=== PATIENT | male | born 1935 | race Caucasian/White ===

== ENCOUNTER 2024-05-07 10:04 | Inpatient (IN) | payer MEDICARE, OTHER, SELFPAY ==
[2024-05-07] VITALS (23 sets, daily range): BP systolic 116–184; BP diastolic 54–96; PULSE 65–92; RESP 14–23; TEMP 36.5–36.6; O2SAT 91–100; BMI 25.3
--- NOTE | ~2024-05-07 | US_ITS ---
EXAMINATION: US carotid duplex BI DATE: 05/10/2024 09:20 INDICATION: Bilateral carotid bruit. TECHNIQUE: Grayscale, color Doppler, and pulsed Doppler images of the cervical carotid arteries were obtained. The degree of vessel stenosis is placed in one of the following categories: normal, <50%, 5 0-69%, >=70% but less than near-occlusion, near-occlusion, or total occlusion. Note that percent sten osis relative to normal distal artery lumen diameter is indirectly measured from velocity measurement s as described by Milo, et al. Radiology 2003; 229:340-346. COMPARISON: Ultrasound 02/10/2017 FINDINGS: RIGHT: The right common carotid artery (CCA) peak systolic velocity (PSV) is 63 cm/s. The right internal car otid artery (ICA) PSV is 83 cm/s. The right ICA end-diastolic velocity (EDV) is 28 cm/s. The right IC A/CCA PSV ratio is 1.3. Grayscale and color Doppler images yield an estimate of <50% diameter reducti on from plaque in the ICA. There is antegrade flow in the right vertebral artery. LEFT: The left CCA PSV is 76 cm/s. The left ICA PSV is 95 cm/s. The left ICA EDV is 25 cm/s. The left ICA/C CA PSV ratio is 1.3. Grayscale and color Doppler images yield an estimate of <50% diameter reduction from plaque in the ICA. There is antegrade flow in the left vertebral artery. IMPRESSION: 1. <50% stenosis in the right internal carotid artery. 2. <50% stenosis in the left internal carotid artery. Reviewed, dictated and finalized at location A.
--- NOTE | ~2024-05-07 | US_ITS ---
TESTICULAR ULTRASOUND (Doppler ultrasound interrogation techniques used as needed for this exam.) Ordering provider: Danielle Johnston PA-C History: . swelling . Comparison: None. FINDINGS: TESTICLES: Normal in size. The right measures 4.1x 1.9x 2.3 cm and the left measures 4x 1.7x 3.4 cm. Normal echogenicity bilaterally without mass lesion. Normal Doppler flow bilaterally. Right testicul ar cyst is seen measuring 0.5 x 0.2 x 0.3 cm. EPIDIDYMIDES: Normal in size. The right measures 0.6 cm and the left 0.9 cm. Normal echogenicity marga aterally. Both demonstrate normal Doppler flow. HYDROCELE: Large on the right and moderate on the left VARICOCELE: None. OTHER ABNORMALITY: None seen. IMPRESSION: Testicular cyst on the right. Bilateral hydroceles more on the right Otherwise, normal testicular ult rasound. Reviewed, dictated and finalized at location A. IMPRESSION: Testicular cyst on the right. Bilateral hydroceles more on the right Otherwise, normal testicular ultrasound.
--- NOTE | ~2024-05-07 | CT_ITS ---
CT of the Abdomen and Pelvis: Indication: Leukocytosis, diarrhea, weakness Technique: 2.5 mm axial scans were obtained through the abdomen and pelvis following intravenous adm inistration of 100 cc of Omnipaque 350. Dose reduction technique was used on this scan by utilizing a utomated exposure control and iterative reconstruction technique. The dose-length product (DLP) was 5 52.82 mGy-cm. Findings: Scans through the lung bases are unremarkable. The liver, spleen, pancreas, gallbladder, and adrenal glands are within normal limits. Bilateral shreya l cysts are present, likely parapelvic cysts. There are atherosclerotic calcifications of the aorta. No lymphadenopathy. No bowel obstruction or bowel wall thickening. There sigmoid diverticulosis noted. Images through the pelvis were performed. Urinary bladder unremarkable. Prostate gland is enlarged. N o ascites. Large right hydrocele present. Impression: Very large right hydrocele. Bilateral renal cysts. Reviewed, dictated and finalized at [facility]. Impression: Very large right hydrocele. Bilateral renal cysts.
--- NOTE | ~2024-05-07 | CT_ITS ---
CT brain wo con Ordering provider: Danielle Johnston PA-C History: 88 years Male with . confusion . Comparison: February 09, 2007 Technique: CT of the head without contrast. Radiation reduction technique utilized.The dose-length product was 605.33 mGy-cm. FINDINGS: BRAIN PARENCHYMA AND CSF SPACES: Mild leukoaraiosis and diffuse cortical atrophy. Mild atheromatous d isease. Rounded focal Hyperdense lesion is seen in the anterior portion of the third ventricle and me asuring 6 mm which is most likely colloid cyst. Hemorrhage cannot be excluded although less likely. F ollow-up advised.. No midline shift, mass effect or hemorrhage. The brain parenchyma and CSF spaces are otherwise normal. VISUALIZED PARANASAL SINUSES: Normal. MASTOIDS: Normal. BONES: Normal. SOFT TISSUES: Visualized nasopharynx is normal. Superficial soft tissues are normal. Hyperdense right globe unchanged from previous examination. IMPRESSION: No acute intracranial findings. Hyperdensity in the anterior third ventricle most likely colloid cyst. Follow-up advised. Reviewed, dictated and finalized at location A. IMPRESSION: No acute intracranial findings. Hyperdensity in the anterior third ventricle most likely colloid cyst. Follow-u p advised.
--- NOTE | ~2024-05-07 | XR_ITS ---
Clinical Indication: Weakness PA and lateral views of the chest: Comparison: 02/09/2017 Findings: The lungs are clear, without evidence of focal consolidation or pleural effusion. Cardiome diastinal silhouette is within normal limits. Bones and soft tissues are unremarkable. Impression: Normal chest. Reviewed, dictated and finalized at [facility]. Impression: Normal chest.
--- NOTE | ~2024-05-07 | CT_ITS ---
EXAMINATION: CT brain wo con DATE: 05/08/2024 08:33 INDICATION: Abnormal head CT. Colloid cyst. TECHNIQUE: Computed tomography (CT) of the head was performed without intravenous contrast. The mA wa s adjusted according to patient size. Iterative reconstruction technique was employed. The dose-lengt h product was 681.00 mGy-cm. COMPARISON: Head CT 05/07/2024, 02/09/17 FINDINGS: There are scattered areas of low attenuation in the cerebral white matter. There is no acut e ischemic infarct or intracranial hemorrhage. The ventricles are normal in size. There is a 7 mm hyp erdense mass in anterior third ventricle. There is a punctate hyperdensity medial to left frontal lob e. There is a small volume of hyperdense material in anterior aspect of left lateral ventricle. There are changes of right-sided scleral banding procedure. There is hyperdense material in the right ocul ar globe, likely injected material. There is mild mucosal thickening in the ethmoid sinuses. The mast oid air cells are normal. IMPRESSION: 1. Moderate nonspecific cerebral white matter disease, which likely represents chronic small vessel i schemic disease. 2. Hyperdensities in the third ventricle and left lateral ventricle and medial to the left frontal lo be, consistent with displaced injectate from the right ocular globe. Reviewed, dictated and finalized at location A. IMPRESSION: 1. Moderate nonspecific cerebral white matter disease, which likely represents chronic small vessel ischemic disease. 2. Hyperdensities in the third ventricle and left lateral ventricle and medial to the left frontal lobe, consistent with displaced injectate from the right oc ular globe.
--- NOTE | 2024-05-07 10:16 | ECG_ITS ---
Test Date: 2024-05-07 10:13:23 Measurements Intervals [place] Rate: 94 P: 0 TX: 0 QRS: 31 QRSD: 86 T: 28 QT: 373 QTc: 469 Interpretive Statements ATRIAL FIBRILLATION WITH ABERRANT CONDUCTION OR VENTRICULAR PREMATURE COMPLEXES NONSPECIFIC ST ABNORMALITY ABNORMAL RHYTHM ECG No previous ECG available for comparison Electronically Signed On 05-07-2024 16:06:29 CDT by Orlando Garza M.D.
--- NOTE | 2024-05-07 10:23 | ED.WEAKNESS ---
HPI - Weakness General Chief complaint: Nausea/Vomiting/Diarrhea <Danielle Johnston PA-C - Last Filed: 05/07/24 15:47> Stated complaint: sick x 1 wk <Danielle Johnston PA-C - Last Filed: 05/07/24 15:47> Time Seen by Provider: 05/07/24 10:15 <Danielle Johnston PA-C - Last Filed: 05/07/24 15:47> Source: patient <Danielle Johnston PA-C - Last Filed: 05/07/24 15:47> Mode of arrival: ambulatory <Danielle Johnston PA-C - Last Filed: 05/07/24 15:47> Limitations: altered mental status <Danielle Johnston PA-C - Last Filed: 05/07/24 15:47> History of Present Illness HPI Narrative: This is a 88 year old male that presents to the ER via [facility] for generalized weakness[facility] as no one had seen or heard from him in about a week. Patient is confused and not able to provide any further history. He does not report any current pain. <Danielle Johnston PA-C - Last Filed: 05/07/24 15:47> Related Data Allergies/Adverse reactions: Allergies Allergy/AdvReac Type Severity Reaction Status Date / Time No Known Allergies Allergy Unverified 02/09/17 08:22 <Danielle Johnston PA-C - Last Filed: 05/07/24 15:47> Review of Systems Review of Systems: ROS unobtainable: Yes unobtainable due to mental status <Danielle Johnston PA-C - Last Filed: 05/07/24 15:47> [facility] Past Medical History Medical History: Medical History Benign prostatic hyperplasia Detached retina <Danielle Johnston PA-C - Last Filed: 05/07/24 15:47> Surgical History Surgical History: Surgical History History of colonoscopy with polypectomy <Danielle Johnston PA-C - Last Filed: 05/07/24 15:47> Social History Social History: Social History (Updated 05/07/24 @ 16:07 by Katie Yeager PA-C) Social History: Surrogate medical decision maker: Code status: Smoking status: Former smoker <Danielle Johnston PA-C - Last Filed: 05/07/24 15:47> Exam Narrative: GENERAL: Elderly, well-nourished, and in no acute distress. HEAD: Normocephalic, atraumatic. EYES: EOMI. Right pupil is irregular and cornea is opacified ENT: Nares clear, no rhinorrhea or epistaxis. Mucous membranes moist. Oropharynx without tonsillar hypertrophy exudate or other lesions. Bilateral TMs pearly clements non-bulging NECK: Supple. No adenopathy or masses. CHEST: Clear to auscultation. No respiratory distress. No wheezes rales or rhonchi HEART: Regular rate and rhythm. No murmur heard. Normal peripheral pulses. ABDOMEN: Soft, nontender, nondistended, normal active bowel sounds. EXTREMITIES: Normal range of motion. No edema. Strength equal in bilateral upper and lower extremities (4/5) SKIN: Warm, dry, no rash. NEURO: No focal deficits. Alert and oriented x1. CN II-XII grossly intact PSYCH: Normal mood and affect <Danielle Johnston PA-C - Last Filed: 05/07/24 15:47> Course NIGHT PATROL INSPECTOR/PA Physician Supervision I agree with midlevel documentation; I performed the medical decision making component of this evaluation. <Fatou Vick MD - Last Filed: 05/07/24 16:08> Consultations Consultation #1: Spoke with hospitalist about patient and workup who accepts admission <Danielle Johnston PA-C - Last Filed: 05/07/24 15:47> Date: 05/07/24 <Danielle Johnston PA-C - Last Filed: 05/07/24 15:47> Vital Signs Vital signs: Vital Signs Temperature 97.7 F 05/07/24 10:00 Pulse Rate 81 05/07/24 10:00 Respiratory Rate 18 05/07/24 10:00 Blood Pressure 179/93 H 05/07/24 10:00 Pulse Oximetry 97 05/07/24 10:00 Oxygen Delivery Room Air 05/07/24 10:00 Temperature 97.7 F 05/07/24 10:00 Pulse Rate 87 05/07/24 14:17 Respiratory Rate 16 05/07/24 14:17 Blood Pressure 138/66 05/07/24 14:17 Pulse Oximetry 98 05/07/24 14:17 Oxygen Delivery Room Air 05/07/24 10:00 <Harley
[2024-05-07 11:24] LABS: Basophils Absolute Auto 0.1 K/mm3 (0.0-0.1); Basophils Percent Auto 0.5 % (0.2-1.2); Eosinophils Absolute Auto 0.1 K/mm3 (0-0.3); Eosinophils Percent Auto 1.1 % (0-4.4); Hematocrit 44.6 % (42.0-52.0); Hemoglobin 14.5 g/dL (14.0-18.0); Immature Granulocyte Absolute 0.04 K/mm3 (0.00-0.031); Immature Granulocyte Percent A 0.4 % (0-0.5); Lymphocytes Absolute Auto 2.21 K/mm3 (0.9-3.2); Lymphocytes Percent Auto 20.3 % (18.3-44.2); Mean Corpuscular HGB Conc 32.5 g/dl (32-36); Mean Corpuscular Hemoglobin 31.2 pg (26-34); Mean Corpuscular Volume 95.9 fl (80-100); Mean Platelet Volume 10.9 fl (7.4-10.4); Monocytes Absolute Auto 0.7 K/mm3 (0.1-0.6); Monocytes Percent Auto 6.3 % (2.6-8.5); Neutrophils Absolute Auto 7.8 K/mm3 (1.3-6.7); Neutrophils Percent Auto 71.4 % (45.5-73.1); Platelet Count Result 310 k/mm3 (150-375); Red Blood Count 4.65 M/mm3 (4.6-6.20); Red Cell Distribution Width 12.7 % (11.5-14.5); White Blood Count 10.9 K/mm3 (4.5-10.0)
[2024-05-07 11:33] LABS: Partial Thromboplastin Time 28.3 Seconds (22.3-36.8); Prothrombin Time 13.9 Seconds (11.1-14.7)
[2024-05-07 11:34] LABS: Alanine Aminotransferase 15 U/L (6-50); Albumin Level 4.1 g/dL (3.5-5.1); Alkaline Phosphatase 59 U/L (38-126); Anion Gap 10 mmol/L (4-12); Aspartate Amino Transferase 21 U/L (17-59); Bilirubin,Total 2.7 mg/dL (0.2-1.3); Blood Urea Nitrogen 20 mg/dL (9-20); Calcium 9.2 mg/dL (8.4-10.2); Carbon Dioxide 28 mmol/L (22-30); Chloride 102 mmol/L (98-107); Creatine Kinase 69 U/L (55-170); Estimated CRCL calculation 47 ml/min; Estimated Glomerular Filt Rate > 60; Glucose 106 mg/dL (65-110); Lipase 39 U/L (23-300); Potassium 3.5 mmol/L (3.4-5.0); Sodium 140 mmol/L (137-145)
[2024-05-07 11:58] LABS: Ethanol < 10 mg/dL (<10)
[2024-05-07 12:06] LABS: Add Urine Microscopic? YES; Appearance Urine Clear (Clear); Bacteria Urine None Seen /hpf; Bilirubin Urine Negative (Negative); Blood Urine Non-Hemolyzed Trace (Negative); Color Urine Dark Yellow (Yellow); Glucose Urine UA Negative (Negative); Ketones Urine 1+ mg/dL (Negative); Lactic Acid Reflex 1.9 mmol/L (0.7-2.0); Leukocyte Esterase Ur Negative LEU/UL (Negative); Need Manual Microscopic Reviewed; Nitrate Urine Negative (Negative); Protein Urine 1+ mg/dL (Negative); Specific Grav Ur 1.026 (1.001-1.035); Squamous Epithelial Cell Urine None Seen /hpf (Few); WBC Urine 0-5 /hpf (0-3); pH Urine 5.5 (5.0-9.0)
[2024-05-07 12:06] LABS: Influenza A QL RT-PCR Negative (Negative); Influenza B QL RT-PCR Negative (Negative); RSV RNA, RT-PCR Negative (Negative); SARS-CoV-2 RNA PCR Negative (Negative)
--- NOTE | 2024-05-07 14:27 | PC.NURSE ---
Bed alarm placed on patient's bed. patient was found standing in room urinating in trash can. patient was stable on his feet. patient easily directed back into bed. warm blanket given.
--- NOTE | 2024-05-07 14:31 | ECG_ITS ---
Test Date: 2024-05-07 14:35:10 Measurements Intervals [place] Rate: 77 P: 48 SD: 186 QRS: 27 QRSD: 93 T: 10 QT: 391 QTc: 443 Interpretive Statements SINUS RHYTHM WITH OCCASIONAL VENTRICULAR PREMATURE COMPLEXES VOLTAGE EVIDENCE OF LEFT VENTRICULAR HYPERTROPHY ABNORMAL ECG Compared to ECG 05/07/2024 10:13:23 SINUS RHYTHM REPLACES ATRIAL FIBRILLATION Electronically Signed On 05-07-2024 16:13:55 CDT by Orlando Garza M.D.
--- NOTE | 2024-05-07 16:05 | PM.IMHP ---
H&P: HPI History of Present Illness Date/Time: 05/07/24 16:05 Chief Complaint: Altered mental status. Narrative: This is an 88-year-old male who presented to the emergency department via EMS from home for evaluation of altered mental status. He is alert and oriented to self only and is a very poor historian. His landlord called 911 for a welfare check as he had not seen or heard from him in about a week's time. The patient was found confused and EMS was summoned. He is known to myself from an admission in January 2017 for syncope and diverticulitis and he was not the greatest historian at that time and refused to name a surrogate decision maker with no contacts charted. Today he arrives with no paperwork, phone, or anything accompanying him which could help us determine whether not he has family or friends nearby to contact. At some point in time he was apparently followed by the [place]. In any event, the patient told EMS that he has had diarrhea for several days and is just not feeling well. He did not have any complaints at the time of my evaluation and denied headache, neck ache, fever, chills, sweats, cold and flu symptoms, focal weakness, paresthesias, visual changes, facial droop, difficulty speaking and swallowing, chest pain, pleuritic pain, shortness of breath, cough, abdominal pain, nausea, vomiting, and dysuria. In the ED: He was in sinus rhythm on arrival with a blood pressure of 179/93. He has been afebrile. CMP and CBC were normal with the only outliers being a WBC count of 10.9 and a total bilirubin of 2.7. He was negative for influenza, RSV, and COVID. Ethyl alcohol level was less than 10. Urine was positive for 1+ ketones, 1+ protein, and 3 to [address] showed no acute intracranial findings and hyperdensity in the anterior 3rd ventricle most likely colloid cyst. Chest x-ray was normal. CT of the abdomen and pelvis showed very large right hydrocele and bilateral renal cysts. Scrotal ultrasound showed testicular cyst on the right bilateral hydroceles, more on the right. He is being admitted in this setting for further evaluation. Review of Systems Review of Systems: Review of systems completed but he stated no to every question asked of him. [facility] Past Medical History Medical History Benign prostatic hyperplasia Detached retina Diverticulitis Surgical History Surgical History History of colonoscopy with polypectomy Social History Social History (Updated 05/07/24 @ 20:43 by Katie Yeager PA-C) Social History: Patient refuses to designate a surrogate decision maker. Smoking status: Former smoker Alcohol intake: unknown Substance use: unknown Spiritual care concerns: No Meds Home Medications and Allergies Home Medications Medication Instructions Recorded Confirmed Type No Home Medications 05/07/24 05/07/24 History Allergies Allergy/AdvReac Type Severity Reaction Status Date / Time No Known Allergies Allergy Unverified 02/09/17 08:22 Vital Signs Vital Signs - 24 hr 05/07/24 10:00 05/07/24 10:10 05/07/24 10:12 Temperature 97.7 F Pulse Rate 81 79 81 Respiratory Rate 18 15 20 Blood Pressure 179/93 H 179/93 H Pulse Oximetry 97 96 Oxygen Delivery Room Air 05/07/24 10:38 05/07/24 11:00 05/07/24 11:40 Temperature Pulse Rate 71 92 69 Respiratory Rate 18 14 23 H Blood Pressure 138/95 H Pulse Oximetry 97 98 Oxygen Delivery 05/07/24 12:01 05/07/24 12:45 05/07/24 13:00 Temperature Pulse Rate 65 78 67 Respiratory Rate 20 17 18 Blood Pressure 143/86 H 144/76 H Pulse Oximetry 97 100 100 Oxygen Delivery 05/07/24 13:01 05/07/24 13:02 05/07/24 13:22 Temperature Pulse Rate 72 68 77 Respiratory Rate 19 18 17 Blood Pressure 134/78 184/74 H Pulse Oximetry 91 95 98 Oxygen Delivery 05/07/24 13:30 05/07/24 13:45 05/07/24 14:
--- NOTE | 2024-05-07 18:03 | PC.NURSE ---
This patient, Kenn Giraldo, was admitted to Medical Room 343-01. Patient/family oriented to hospital policies and general routines including ID bracelet, bed and alarms, visiting hours, pain management, procedures, bathroom and other care routines, personal items, smoking policy, room service/diet, and visiting hours. Information on how to activate the Rapid Response Team has been discussed. Patient/Family are encouraged to report perceived risks to care and to ask questions if they do not understand what they are told or what they should do.
--- NOTE | 2024-05-07 18:07 | PC.NURSE ---
RN unable to obtain any medical information or medications as patient is poor historian. Patient is only oriented to name. Patient unable to give correct birthday and states he is in [place] currently. Patient has no one listed on his contact list.
[2024-05-07] MEDS: LACTATED RINGERS 1,000 ML 100 ML IV CONT (21:34)
[2024-05-07 21:36] LABS: Ammonia < 9 umol/L (9-30); Bilirubin Indirect 2.4 mg/dL (0-1.1)
[2024-05-07 21:41] LABS: CRP < 0.5 mg/dL (<1.0)
[2024-05-07 22:19] LABS: Procalcitonin 0.1 ng/mL
[2024-05-08] VITALS (8 sets, daily range): BP systolic 103–142; BP diastolic 55–66; PULSE 55–86; RESP 16–18; TEMP 36.4–36.6; O2SAT 94–96
[2024-05-08 01:22] LABS: Amphetamine Screen Urine Negative (Negative); Barbiturate Screen Urine Negative (Negative); Benzodiazepines Screen Urine Negative (Negative); Cannabinoid Screen Urine Negative (Negative); Cocaine Screen Urine Negative (Negative); Methadone Screen Urine Negative (Negative); Opiate Screen Urine Negative (Negative); Phencyclidine Screen Urine Negative (Negative)
[2024-05-08 05:16] LABS: Hematocrit 40.4 % (42.0-52.0); Hemoglobin 13.9 g/dL (14.0-18.0); Mean Corpuscular HGB Conc 34.4 g/dl (32-36); Mean Corpuscular Hemoglobin 32.5 pg (26-34); Mean Corpuscular Volume 94.4 fl (80-100); Mean Platelet Volume 10.8 fl (7.4-10.4); Platelet Count Result 291 k/mm3 (150-375); Red Blood Count 4.28 M/mm3 (4.6-6.20); Red Cell Distribution Width 12.5 % (11.5-14.5); White Blood Count 11.2 K/mm3 (4.5-10.0)
[2024-05-08 05:27] LABS: Alanine Aminotransferase 13 U/L (6-50); Albumin Level 3.6 g/dL (3.5-5.1); Alkaline Phosphatase 55 U/L (38-126); Anion Gap 8 mmol/L (4-12); Aspartate Amino Transferase 17 U/L (17-59); Blood Urea Nitrogen 15 mg/dL (9-20); Calcium 8.7 mg/dL (8.4-10.2); Carbon Dioxide 26 mmol/L (22-30); Chloride 103 mmol/L (98-107); Estimated CRCL calculation 52 ml/min; Estimated Glomerular Filt Rate > 60; Glucose 86 mg/dL (65-110); Potassium 3.1 mmol/L (3.4-5.0); Sodium 137 mmol/L (137-145)
[2024-05-08 06:21] LABS: Thyroid Stimulating Hormone Reflex 0.696 uIU/mL (0.465-4.68)
--- NOTE | 2024-05-08 14:34 | PM.IMPN ---
Progress Note: A&P Assessment and Plan (1) Altered mental status: Qualifiers: Altered mental status type: unspecified Qualified Code(s): R41.82 - Altered mental status, unspecified Code(s): R41.82 - Altered mental status, unspecified Status: Acute Assessment and Plan: -The patient presented to the emergency department via EMS from his place of residence after he was found altered on a welfare check as detailed in HPI. - Unfortunately the patient is not able to provide any meaningful history and no contacts are available. - Upon reviewing the notes from his visit in 2017, it seems that he may very well have underlying cognitive deficits or psychiatric disorders. He has previously been seen at the [facility] and records have been requested - Brain CT did not show any acute findings but showed what appears to be a colloid cyst of the 3rd ventricle which is likely of no significance at this time. However radiologist does note that the area has some hyperdensity thus will repeat brain CT to rule out bleed. Neurologic exam is limited but appears nonfocal and stroke seems unlikely. No evidence to suggest underlying infection on preliminary workup. No reports of or evidence in his EMR to suggest a history of alcohol abuse and he does not appear to be going through withdrawals. - Urine drug screen, B12, ammonia, and TSH ordered. (2) Hyperbilirubinemia: Code(s): E80.6 - Other disorders of bilirubin metabolism Status: Acute Assessment and Plan: - Total bilirubin is a bit elevated but the remainder of his LFTs are within normal limits. 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 He just came back from CT. He is alert but not oriented, sitter at the bedside. He reports that he had not been feeling himself for a while but unable to provide any details. Review of Systems Review of Systems: pt is poor historian Exam Narrative: General: Mildly ill-appearing male in the semi-Cabrera position in bed. Weight: 71.2 kg. BMI: 25.3. HEENT: Normocephalic, atraumatic. Right pupil is a bit irregular when compared to the left but appears chronic. Sclera anicteric. Conjunctiva injected bilaterally. Tacky mucous membranes. Neck: Supple. No obvious lymphadenopathy or carotid bruits. No nuchal rigidity. Respiratory: Respirations are nonlabored and lungs are clear to auscultation. Cardiovascular: Regular rate and rhythm with S1-S2. Gastrointestinal: Abdomen is soft, nontender, and nondistended with positive bowel sounds. Skin: Warm and dry. Extremities: No cyanosis, clubbing, or edema. Radial and pedal pulses intact. Neurological: Alert and oriented to name only. Cranial nerves 2-12 are grossly intact. Speech is clear, some answers are nonsensical. No facial asymmetry. No pronator drift. Hand precipitation equipment tender and foot pushes are weak due to poor effort but are without gross focal findings. Psychiatric: Confused and cooperative. Const: General: comfortable Objective Data Vital Signs Vital Signs: Vital Signs - 24 hr 05/07/24 15:30 05/07/24 15:45 05/07/24 16:45 Temperature Pulse Rate 85 65 88 Respiratory Rate 17 17 15 Blood Pressure Pulse Oximetry Oxygen Delivery 05/07/24 17:15 05/07/24 17:17 05/07/24 21:45 Temperature 97.9 F Pulse Rate 87 74 67 Respiratory Rate 20 20 20 Blood Pressure 131/96 H 116/54 L Pulse Oximetry 98 Oxygen Delivery 05/07/24 20:00 05/08
[2024-05-08] MEDS: POTASSIUM CHLORIDE 20 MEQ PACKET (FOR LIQUID) 40 MEQ PO (17:18)
[2024-05-09] VITALS (9 sets, daily range): BP systolic 97–133; BP diastolic 54–65; PULSE 57–86; RESP 16–18; TEMP 36.4–36.6; O2SAT 96–97
[2024-05-09 06:04] LABS: Hematocrit 37.3 % (42.0-52.0); Hemoglobin 12.5 g/dL (14.0-18.0); Mean Corpuscular HGB Conc 33.5 g/dl (32-36); Mean Corpuscular Hemoglobin 31.8 pg (26-34); Mean Corpuscular Volume 94.9 fl (80-100); Mean Platelet Volume 10.8 fl (7.4-10.4); Platelet Count Result 270 k/mm3 (150-375); Red Blood Count 3.93 M/mm3 (4.6-6.20); Red Cell Distribution Width 12.4 % (11.5-14.5); White Blood Count 11.6 K/mm3 (4.5-10.0)
[2024-05-09 06:15] LABS: Anion Gap 6 mmol/L (4-12); Blood Urea Nitrogen 21 mg/dL (9-20); Calcium 8.5 mg/dL (8.4-10.2); Carbon Dioxide 28 mmol/L (22-30); Chloride 104 mmol/L (98-107); Estimated CRCL calculation 47 ml/min; Estimated Glomerular Filt Rate > 60; Glucose 124 mg/dL (65-110); Potassium 3.5 mmol/L (3.4-5.0); Sodium 138 mmol/L (137-145)
[2024-05-09] MEDS: POTASSIUM CHLORIDE 20 MEQ PACKET (FOR LIQUID) 40 MEQ PO (08:02)
--- NOTE | 2024-05-09 10:12 | PM.IMPN ---
Progress Note: A&P Assessment and Plan (1) Altered mental status: Qualifiers: Altered mental status type: unspecified Qualified Code(s): R41.82 - Altered mental status, unspecified Code(s): R41.82 - Altered mental status, unspecified Status: Acute Assessment and Plan: -The patient presented to the emergency department via EMS from his place of residence after he was found altered on a welfare check as detailed in HPI. - Unfortunately the patient is not able to provide any meaningful history and no contacts are available. - Upon reviewing the notes from his visit in 2017, it seems that he may very well have underlying cognitive deficits or psychiatric disorders. He has previously been seen at the [facility] and records have been requested - Brain CT did not show any acute findings but showed what appears to be a colloid cyst of the 3rd ventricle which is likely of no significance at this time. However radiologist does note that the area has some hyperdensity thus will repeat brain CT to rule out bleed. Neurologic exam is limited but appears nonfocal and stroke seems unlikely. No evidence to suggest underlying infection on preliminary workup. No reports of or evidence in his EMR to suggest a history of alcohol abuse and he does not appear to be going through withdrawals. - Urine drug screen, B12, ammonia, and TSH ordered. - so far- no infectious reason for AMS - still trying ti get records from [facility] to see if any other work up was done - will consult neurology for any additional work up for ?dementia/ams (2) Hyperbilirubinemia: Code(s): E80.6 - Other disorders of bilirubin metabolism Status: Acute Assessment and Plan: - Total bilirubin is a bit elevated but the remainder of his LFTs are within normal limits. 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 CT-no acute bleed. He is alert but not oriented, no longer using a sitter at the bedside. He reports that he had not been feeling himself for a while but unable to provide any details. Review of Systems Review of Systems: pt is poor historian Exam Narrative: General: Mildly ill-appearing male in the semi-Cabrera position in bed. Weight: 71.2 kg. BMI: 25.3. HEENT: Normocephalic, atraumatic. Right pupil is a bit irregular when compared to the left but appears chronic. Sclera anicteric. Conjunctiva injected bilaterally. Tacky mucous membranes. Neck: Supple. No obvious lymphadenopathy or carotid bruits. No nuchal rigidity. Respiratory: Respirations are nonlabored and lungs are clear to auscultation. Cardiovascular: Regular rate and rhythm with S1-S2. Gastrointestinal: Abdomen is soft, nontender, and nondistended with positive bowel sounds. Skin: Warm and dry. Extremities: No cyanosis, clubbing, or edema. Radial and pedal pulses intact. Neurological: Alert and oriented to name only. Cranial nerves 2-12 are grossly intact. Speech is clear, some answers are nonsensical. No facial asymmetry. No pronator drift. Hand tennis court attendant and foot pushes are weak due to poor effort but are without gross focal findings. Psychiatric: Confused and cooperative. Const: General: comfortable Objective Data Vital Signs Vital Signs: Vital Signs - 24 hr 05/08/24 13:50 05/08/24 14:00 05/08/24 12:00 Temperature 97.5 F L Pulse Rate 84 76 Respiratory Rate 18 Blood Pressure 103/62 Pulse Oximetry 94 Oxygen Delivery Room Air 05/08/24 15:21 05/08/24
--- NOTE | 2024-05-09 18:39 | WPDNEURCNPN ---
Assessment and Plan Assessment and plan (1) Dementia: Code(s): F03.90 - Unspecified dementia, unspecified severity, without behavioral disturbance, psychotic disturbance, mood disturbance, and anxiety Status: Acute (2) Altered mental status: Qualifiers: Altered mental status type: unspecified Qualified Code(s): R41.82 - Altered mental status, unspecified Code(s): R41.82 - Altered mental status, unspecified Status: Acute (3) Benign prostatic hyperplasia: Code(s): N40.0 - Benign prostatic hyperplasia without lower urinary tract symptoms Status: Acute (4) Hyperbilirubinemia: Code(s): E80.6 - Other disorders of bilirubin metabolism Status: Acute (5) Dehydration: Code(s): E86.0 - Dehydration Status: Acute Plan At this stage to differentiate between underlying dementia versus any superimposed metabolic encephalopathy would be important 1 on a single examination. I suspect he has some underlying dementia. His metabolic workup so far has not yielded any significant abnormalities other than elevated bilirubin. At the hospitalist team is working on these issues. I would suggest an MRI of the brain and EEG and agree with the checking B12 and folic acid level thyroid function test and vitamin D levels. It may be an option to consider putting on Lexapro 10 mg a day on Aricept 5 mg a day in the morning but I shall leave this up to you. Consult date: 05/09/24 HPI: Kenn Giraldo is a 88 year old male who was brought to the hospital at the request of his landlord since he has not been seen active for a whole week. The landlord called 911 for a welfare check. Patient was found to be confused. He has had a previous admission to the hospital in January of 2017 for syncope and diverticulitis. Apparently he has been followed up at [facility]. No family members were present at the time of this evaluation. Apparently was thought to have generalized weakness. The patient is poor historian. The current records were reviewed and I also discussed with the nursing staff. Apparently besides giving his name he has not been able to do very much else. The patient states that he is able to take care of his own personal needs in his apartment. His total bili was high at 2.7 but AST and ALT were normal. CT scan of the head did not show any significant abnormality. Scrotal ultrasound shows a testicular cyst in the right side and bilateral hydrocele more on the right than left side. Bilateral renal cyst were identified of the abdomen/ pelvis CT scan. Review of Systems Review of Systems: All systems reviewed & are unremarkable except as noted in HPI and below [facility] Past Medical History Medical History (Updated 05/09/24 @ 18:48 by Fernando Alvarado MD) Benign prostatic hyperplasia Dementia Detached retina Diverticulitis Surgical History Surgical History History of colonoscopy with polypectomy Social History Social History Social History: Patient refuses to designate a surrogate decision maker. Smoking status: Former smoker Alcohol intake: unknown Substance use: unknown Spiritual care concerns: No Meds Home Medications and Allergies Home Medications Medication Instructions Recorded Confirmed Type No Home Medications 05/07/24 05/07/24 History Allergies Allergy/AdvReac Type Severity Reaction Status Date / Time No Known Allergies Allergy Unverified 02/09/17 08:22 Vital Signs Vital Signs - 24 hr 05/08/24 19:30 05/08/24 20:00 05/09/24 00:00 Temperature 98 F Pulse Rate 70 81 78 Respiratory Rate 16 Blood Pressure 132/55 L Pulse Oximetry 96 Oxygen Delivery 05/09/24 04:18 05/09/24 04:00 05/09/24 08:02 Temperature 97.6 F Pulse Rate 68 74 Respiratory Rate 16 Blood Pressure 131/64 Pulse Oximetry 97 Oxygen
[2024-05-09 20:31] LABS: Vitamin D 25 Hydroxy 38.9 ng/mL
[2024-05-09 21:02] LABS: Folic Acid 8.8 ng/mL (2.76->20)
[2024-05-10] VITALS (9 sets, daily range): BP systolic 125–154; BP diastolic 59–79; PULSE 57–80; RESP 16–18; TEMP 36.6; O2SAT 95–97
[2024-05-10 06:07] LABS: Hematocrit 36.2 % (42.0-52.0); Hemoglobin 11.5 g/dL (14.0-18.0); Mean Corpuscular HGB Conc 31.8 g/dl (32-36); Mean Corpuscular Hemoglobin 31.3 pg (26-34); Mean Corpuscular Volume 98.6 fl (80-100); Mean Platelet Volume 11.2 fl (7.4-10.4); Platelet Count Result 253 k/mm3 (150-375); Red Blood Count 3.67 M/mm3 (4.6-6.20); Red Cell Distribution Width 12.7 % (11.5-14.5); White Blood Count 9.7 K/mm3 (4.5-10.0)
[2024-05-10 06:17] LABS: Anion Gap 4 mmol/L (4-12); Blood Urea Nitrogen 21 mg/dL (9-20); Calcium 8.4 mg/dL (8.4-10.2); Carbon Dioxide 27 mmol/L (22-30); Chloride 108 mmol/L (98-107); Estimated CRCL calculation 52 ml/min; Estimated Glomerular Filt Rate > 60; Glucose 95 mg/dL (65-110); Potassium 3.8 mmol/L (3.4-5.0); Sodium 139 mmol/L (137-145)
[2024-05-10] MEDS: POTASSIUM CHLORIDE 20 MEQ PACKET (FOR LIQUID) 40 MEQ PO (08:25)
--- NOTE | 2024-05-10 09:27 | PM.IMPN ---
Progress Note: A&P Assessment and Plan (1) Altered mental status: Qualifiers: Altered mental status type: unspecified Qualified Code(s): R41.82 - Altered mental status, unspecified Code(s): R41.82 - Altered mental status, unspecified Status: Acute Assessment and Plan: -The patient presented to the emergency department via EMS from his place of residence after he was found altered on a welfare check as detailed in HPI. - Unfortunately the patient is not able to provide any meaningful history and no contacts are available. - Upon reviewing the notes from his visit in 2017, it seems that he may very well have underlying cognitive deficits or psychiatric disorders. He has previously been seen at the [facility] and records have been requested - Brain CT did not show any acute findings but showed what appears to be a colloid cyst of the 3rd ventricle which is likely of no significance at this time. However radiologist does note that the area has some hyperdensity thus will repeat brain CT to rule out bleed. Neurologic exam is limited but appears nonfocal and stroke seems unlikely. No evidence to suggest underlying infection on preliminary workup. No reports of or evidence in his EMR to suggest a history of alcohol abuse and he does not appear to be going through withdrawals. - Urine drug screen, B12, ammonia, and TSH ordered. - so far- no infectious reason for AMS - still trying ti get records from [facility] to see if any other work up was done - will consult neurology for any additional work up for ?dementia/ams 05/10- mri, eeg lexapro and aricept started neurology following- appreciate recommendations TSH, vit d. b12, folate- all WNL (2) Hyperbilirubinemia: Code(s): E80.6 - Other disorders of bilirubin metabolism Status: Acute Assessment and Plan: - Total bilirubin is a bit elevated but the remainder of his LFTs are within normal limits. 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 CT-no acute bleed. He is alert but not oriented. WE consulted neurology for any help- MRI is recommneded but unable to compelte the form. [facility]. Started on lexapro and aricept. Review of Systems Review of Systems: pt is poor historian Exam Narrative: General: Mildly ill-appearing male in the semi-Cabrera position in bed, resting with eyes closed. HEENT: Normocephalic, atraumatic. Right pupil is a bit irregular when compared to the left but appears chronic. Sclera anicteric. Conjunctiva injected bilaterally. Tacky mucous membranes. Neck: Supple. No obvious lymphadenopathy or carotid bruits. No nuchal rigidity. Respiratory: Respirations are nonlabored and lungs are clear to auscultation. Cardiovascular: Regular rate and rhythm with S1-S2. Gastrointestinal: Abdomen is soft, nontender, and nondistended with positive bowel sounds. Skin: Warm and dry. Extremities: No cyanosis, clubbing, or edema. Radial and pedal pulses intact. Neurological: Alert and oriented to name only. Cranial nerves 2-12 are grossly intact. Speech is clear, some answers are nonsensical. No facial asymmetry. No pronator drift. 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 Psychiatric: Confused and cooperative. Const: General: comfortable Objective Data Vital Signs Vital Signs: Vital Signs - 24 hr 05/09/24 12:00 05/09/24 13:45 05/09/24 16:00 Temperature 97
[2024-05-10] MEDS: DONEPEZIL HCL 5 MG TABLET PO (09:45)
[2024-05-10] MEDS: ESCITALOPRAM OXALATE 10 MG TABLET PO (09:45)
[2024-05-11] VITALS (9 sets, daily range): BP systolic 142–163; BP diastolic 65–73; PULSE 55–72; RESP 16–20; TEMP 36.4–36.5; O2SAT 96–97
[2024-05-11 06:14] LABS: Hematocrit 36.7 % (42.0-52.0); Hemoglobin 11.9 g/dL (14.0-18.0); Mean Corpuscular HGB Conc 32.4 g/dl (32-36); Mean Corpuscular Hemoglobin 31.1 pg (26-34); Mean Corpuscular Volume 95.8 fl (80-100); Mean Platelet Volume 10.6 fl (7.4-10.4); Platelet Count Result 271 k/mm3 (150-375); Red Blood Count 3.83 M/mm3 (4.6-6.20); Red Cell Distribution Width 12.6 % (11.5-14.5); White Blood Count 10.7 K/mm3 (4.5-10.0)
[2024-05-11 06:22] LABS: Anion Gap 7 mmol/L (4-12); Blood Urea Nitrogen 16 mg/dL (9-20); Calcium 8.5 mg/dL (8.4-10.2); Carbon Dioxide 25 mmol/L (22-30); Chloride 106 mmol/L (98-107); Estimated CRCL calculation 52 ml/min; Estimated Glomerular Filt Rate > 60; Glucose 90 mg/dL (65-110); Potassium 3.9 mmol/L (3.4-5.0); Sodium 138 mmol/L (137-145)
[2024-05-11] MEDS: POTASSIUM CHLORIDE 20 MEQ PACKET (FOR LIQUID) 40 MEQ PO (08:59)
[2024-05-11] MEDS: DONEPEZIL HCL 5 MG TABLET PO (08:59)
[2024-05-11] MEDS: ESCITALOPRAM OXALATE 10 MG TABLET PO (08:59)
[2024-05-11] MEDS: ACETAMINOPHEN 325 MG TABLET 650 MG PO (09:00)
--- NOTE | 2024-05-11 10:03 | PM.IMPN ---
Progress Note: A&P Assessment and Plan (1) Altered mental status: Qualifiers: Altered mental status type: unspecified Qualified Code(s): R41.82 - Altered mental status, unspecified Code(s): R41.82 - Altered mental status, unspecified Status: Acute Assessment and Plan: -The patient presented to the emergency department via EMS from his place of residence after he was found altered on a welfare check as detailed in HPI. - Unfortunately the patient is not able to provide any meaningful history and no contacts are available. - Upon reviewing the notes from his visit in 2017, it seems that he may very well have underlying cognitive deficits or psychiatric disorders. He has previously been seen at the [facility] and records have been requested - Brain CT did not show any acute findings but showed what appears to be a colloid cyst of the 3rd ventricle which is likely of no significance at this time. However radiologist does note that the area has some hyperdensity thus will repeat brain CT to rule out bleed. Neurologic exam is limited but appears nonfocal and stroke seems unlikely. No evidence to suggest underlying infection on preliminary workup. No reports of or evidence in his EMR to suggest a history of alcohol abuse and he does not appear to be going through withdrawals. - Urine drug screen, B12, ammonia, and TSH ordered. - so far- no infectious reason for AMS - still trying ti get records from [facility] to see if any other work up was done - will consult neurology for any additional work up for ?dementia/ams 05/10- mri, eeg lexapro and aricept started neurology following- appreciate recommendations TSH, vit d. b12, folate- all WNL 05/11- stable- neurology following- appreciate recommendations (2) Hyperbilirubinemia: Code(s): E80.6 - Other disorders of bilirubin metabolism Status: Acute Assessment and Plan: - Total bilirubin is a bit elevated but the remainder of his LFTs are within normal limits. 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 [facility]. Started on lexapro and aricept 05/10. NOted 4 BMs. Eating/drinking ok. Still confused but his baseline since admition. Review of Systems Review of Systems: pt is poor historian Exam Narrative: General: Mildly ill-appearing male in the semi-Cabrera position in bed, resting with eyes closed. HEENT: Normocephalic, atraumatic. Right pupil is a bit irregular when compared to the left but appears chronic. Sclera anicteric. Conjunctiva injected bilaterally. Tacky mucous membranes. Neck: Supple. No obvious lymphadenopathy or carotid bruits. No nuchal rigidity. Respiratory: Respirations are nonlabored and lungs are clear to auscultation. Cardiovascular: Regular rate and rhythm with S1-S2. Gastrointestinal: Abdomen is soft, nontender, and nondistended with positive bowel sounds. Skin: Warm and dry. Extremities: No cyanosis, clubbing, or edema. Radial and pedal pulses intact. Neurological: Alert and oriented to name only. Cranial nerves 2-12 are grossly intact. Speech is clear, some answers are nonsensical. No facial asymmetry. No pronator drift. Hand block setter gypsum and foot pushes are weak due to poor effort but are without gross focal findings. Psychiatric: Confused and cooperative. Const: General: comfortable Objective Data Vital Signs Vital Signs: Vital Signs - 24 hr 05/10/24 12:00 05/10/24 13:39 05/10/24 16:00 Temper
[2024-05-12] VITALS (9 sets, daily range): BP systolic 110–139; BP diastolic 55–70; PULSE 55–114; RESP 16–20; TEMP 36.3–36.9; O2SAT 93–98
[2024-05-12] MEDS: ACETAMINOPHEN 325 MG TABLET 650 MG PO (02:43)
[2024-05-12 05:53] LABS: Hematocrit 37.9 % (42.0-52.0); Mean Corpuscular HGB Conc 34.3 g/dl (32-36); Mean Corpuscular Hemoglobin 32.4 pg (26-34); Mean Corpuscular Volume 94.5 fl (80-100); Platelet Count Result 295 k/mm3 (150-375); Red Blood Count 4.01 M/mm3 (4.6-6.20); Red Cell Distribution Width 12.4 % (11.5-14.5); White Blood Count 11.4 K/mm3 (4.5-10.0)
[2024-05-12 06:11] LABS: Anion Gap 5 mmol/L (4-12); Blood Urea Nitrogen 12 mg/dL (9-20); Calcium 8.8 mg/dL (8.4-10.2); Carbon Dioxide 29 mmol/L (22-30); Chloride 101 mmol/L (98-107); Estimated CRCL calculation 68 ml/min; Estimated Glomerular Filt Rate > 60; Glucose 90 mg/dL (65-110); Potassium 3.9 mmol/L (3.4-5.0); Sodium 135 mmol/L (137-145)
[2024-05-12] MEDS: POTASSIUM CHLORIDE 20 MEQ PACKET (FOR LIQUID) 40 MEQ PO (08:39)
[2024-05-12] MEDS: DONEPEZIL HCL 5 MG TABLET PO (08:39)
[2024-05-12] MEDS: ESCITALOPRAM OXALATE 10 MG TABLET PO (08:39)
[2024-05-12] MEDS: TAMSULOSIN HCL 0.4 MG CAPSULE PO (08:39)
[2024-05-12] MEDS: MIRABEGRON 25 MG ER TABLET PO (08:40)
[2024-05-12 09:12] LABS: Ammonia < 9 umol/L (9-30)
[2024-05-12 10:03] LABS: Hepatitis B Surface Antigen Negative (Negative)
[2024-05-12 10:09] LABS: HAV RESULT Negative (Negative); Hepatitis B Core IgM Result Negative (Negative)
[2024-05-12 10:20] LABS: Hepatitis C Virus Antibody Negative (Negative)
[2024-05-12 11:36] LABS: Toxigenic C. Diff NEGATIVE (NEGATIVE)
--- NOTE | 2024-05-12 13:09 | P.PNIM_ITS ---
Progress Note: A&P Assessment and Plan (1) Altered mental status: Qualifiers: Altered mental status type: unspecified Qualified Code(s): R41.82 - Altered mental status, unspecified Code(s): R41.82 - Altered mental status, unspecified Status: Acute Assessment and Plan: * The patient presented to the emergency department via EMS from his place of residence after he was found altered on a welfare check as detailed in HPI. * Unfortunately the patient is not able to provide any meaningful history and no contacts are available. * Upon reviewing the notes from his visit in 2017, it seems that he may very well have underlying cognitive deficits or psychiatric disorders. He has previously been seen at the [facility] and records have been requested * Brain CT did not show any acute findings but showed what appears to be a colloid cyst of the 3rd ventricle which is likely of no significance at this time. * However radiologist does note that the area has some hyperdensity thus will repeat brain CT to rule out bleed. * Neurologic exam is limited but appears nonfocal and stroke seems unlikely. No evidence to suggest underlying infection on preliminary workup. No reports of or evidence in his EMR to suggest a history of alcohol abuse and he does not appear to be going through withdrawals. * Urine drug screen, B12, ammonia, and TSH ordered. * far- no infectious reason for AMS * consult neurology for any additional work up for ?dementia/ams * 05/10- mri, eeg * lexapro and aricept started * neurology following- appreciate recommendations * TSH, vit d. b12, folate- all WNL 05/11 * stable- neurology following- appreciate recommendations 05/12/24 * MRI pending will need [facility] records for clearance * attempting to find a contact LM with [facility] * Heapatitis panel negative * HIV pending * EEG pending * Mini Mental ordered * may need psych consult * does not appear to be from an infectious process * Head CT negative * Carotid <50% bilateral (2) Hyperbilirubinemia: Code(s): E80.6 - Other disorders of bilirubin metabolism Status: Acute Assessment and Plan: * Total bilirubin is a bit elevated but the remainder of his LFTs are within normal limits. 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 The [employer] is post be providing information tomorrow. Likely can not do MRI until records from [facility] received no infectious process noted this may be progressing dementia however may a past psychiatric history unknown may need psychiatric evaluation. Patient was living by himself in an apartment building by likely unable to return i
--- NOTE | 2024-05-12 13:09 | PM.IMPN ---
Progress Note: A&P Assessment and Plan (1) Altered mental status: Qualifiers: Altered mental status type: unspecified Qualified Code(s): R41.82 - Altered mental status, unspecified Code(s): R41.82 - Altered mental status, unspecified Status: Acute Assessment and Plan: The patient presented to the emergency department via EMS from his place of residence after he was found altered on a welfare check as detailed in HPI. Unfortunately the patient is not able to provide any meaningful history and no contacts are available. Upon reviewing the notes from his visit in 2017, it seems that he may very well have underlying cognitive deficits or psychiatric disorders. He has previously been seen at the [facility] and records have been requested Brain CT did not show any acute findings but showed what appears to be a colloid cyst of the 3rd ventricle which is likely of no significance at this time. However radiologist does note that the area has some hyperdensity thus will repeat brain CT to rule out bleed. Neurologic exam is limited but appears nonfocal and stroke seems unlikely. No evidence to suggest underlying infection on preliminary workup. No reports of or evidence in his EMR to suggest a history of alcohol abuse and he does not appear to be going through withdrawals. Urine drug screen, B12, ammonia, and TSH ordered. far- no infectious reason for AMS consult neurology for any additional work up for ?dementia/ams 05/10- mri, eeg lexapro and aricept started neurology following- appreciate recommendations TSH, vit d. b12, folate- all WNL 05/11 stable- neurology following- appreciate recommendations 05/12/24 MRI pending will need [facility] attempting to find a contact LM with [facility] Heapatitis panel negative HIV pending EEG pending Mini Mental ordered may need psych consult does not appear to be from an infectious process Head CT negative Carotid <50% bilateral (2) Hyperbilirubinemia: Code(s): E80.6 - Other disorders of bilirubin metabolism Status: Acute Assessment and Plan: Total bilirubin is a bit elevated but the remainder of his LFTs are within normal limits. 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 The [employer] is post be providing information tomorrow. Likely can not do MRI until records from [facility] received no infectious process noted this may be progressing dementia however may a past psychiatric history unknown may need psychiatric evaluation. Patient was living by himself in an apartment building by likely unable to return if no improvement. Time Spent With Patient Time with patient: 15 - 25 minutes Subjective Date/time seen: 05/12/24 13:09 Interval history: Patient is an 88-year-old male who was admitted to the medical unit for further evaluation metabolic encephalopathy versus dementia 05/12/24: Assumed Care Patient only alert to name and could tell me his date of . Patient unable to respond to questions appropriately . Patient stated he didn't have CP,SOB or pain anywhere. He did state he has had troubles urinating. Review of Systems Review of Systems: pt is poor historian ROS unobtainable: Yes unobtainable due to medical condition
--- NOTE | 2024-05-12 16:31 | PC.NURSE ---
RN was able to obtain a son's phone number. Son's name is Baldomero and phone number is now listed in the contact information. Baldomero told RN via telephone that patient was taking lithium once and is a schizophrenic. However son has no spoken with Kenn his father in 20 years.
[2024-05-12 16:39] LABS: Lithium < 0.2 mmol/L (0.6-1.2)
[2024-05-12] MEDS: ENOXAPARIN 40 MG/0.4 ML SYRINGE SUB-Q (16:52)
[2024-05-13] VITALS: PULSE 55
[2024-05-13 04:00] VITALS: PULSE 65
[2024-05-13 05:42] LABS: Hematocrit 36.1 % (42.0-52.0); Hemoglobin 11.7 g/dL (14.0-18.0); Mean Corpuscular HGB Conc 32.4 g/dl (32-36); Mean Corpuscular Hemoglobin 31.5 pg (26-34); Mean Corpuscular Volume 97.3 fl (80-100); Mean Platelet Volume 10.8 fl (7.4-10.4); Platelet Count Result 290 k/mm3 (150-375); Red Blood Count 3.71 M/mm3 (4.6-6.20); Red Cell Distribution Width 12.7 % (11.5-14.5); White Blood Count 11.1 K/mm3 (4.5-10.0)
[2024-05-13 05:52] LABS: Alanine Aminotransferase 17 U/L (6-50); Alkaline Phosphatase 61 U/L (38-126); Anion Gap 5 mmol/L (4-12); Aspartate Amino Transferase 17 U/L (17-59); Bilirubin,Total 0.6 mg/dL (0.2-1.3); Blood Urea Nitrogen 21 mg/dL (9-20); Calcium 8.6 mg/dL (8.4-10.2); Carbon Dioxide 27 mmol/L (22-30); Chloride 103 mmol/L (98-107); Estimated CRCL calculation 47 ml/min; Estimated Glomerular Filt Rate > 60; Glucose 92 mg/dL (65-110); Potassium 4.3 mmol/L (3.4-5.0); Sodium 135 mmol/L (137-145)
[2024-05-13 06:00] VITALS: BP 137/62; PULSE 62; RESP 16; TEMP 36.3; O2SAT 96
[2024-05-13 09:07] VITALS: PULSE 53
[2024-05-13] MEDS: ESCITALOPRAM OXALATE 10 MG TABLET PO (09:07)
[2024-05-13] MEDS: TAMSULOSIN HCL 0.4 MG CAPSULE PO (09:07)
[2024-05-13] MEDS: DONEPEZIL HCL 5 MG TABLET PO (09:07)
[2024-05-13] MEDS: POTASSIUM CHLORIDE 20 MEQ PACKET (FOR LIQUID) 40 MEQ PO (09:08)
[2024-05-13] MEDS: ENOXAPARIN 40 MG/0.4 ML SYRINGE SUB-Q (09:08)
[2024-05-13] MEDS: MIRABEGRON 25 MG ER TABLET PO (09:08)
[2024-05-13 10:03] LABS: Methylmalonic Acid 561 nmol/L (85-423)
[2024-05-13 12:00] VITALS: PULSE 79
--- NOTE | 2024-05-13 13:36 | P.DS_ITS ---
DS: Admitting Diagnosis Discharge Date 05/13 Admitting Diagnosis confusion DS: Discharge Diagnosis Discharge Diagnosis (1) Altered mental status: Qualifiers: Altered mental status type: unspecified Qualified Code(s): R41.82 - Altered mental status, unspecified Code(s): R41.82 - Altered mental status, unspecified Status: Acute Assessment and Plan: * The patient presented to the emergency department via EMS from his place of residence after he was found altered on a welfare check as detailed in HPI. * Unfortunately the patient is not able to provide any meaningful history and no contacts are available. * Upon reviewing the notes from his visit in 2017, it seems that he may very well have underlying cognitive deficits or psychiatric disorders. He has previously been seen at the [facility] and records have been requested * Brain CT did not show any acute findings but showed what appears to be a colloid cyst of the 3rd ventricle which is likely of no significance at this time. * However radiologist does note that the area has some hyperdensity thus will repeat brain CT to rule out bleed. * Neurologic exam is limited but appears nonfocal and stroke seems unlikely. No evidence to suggest underlying infection on preliminary workup. No reports of or evidence in his EMR to suggest a history of alcohol abuse and he does not appear to be going through withdrawals. * Urine drug screen, B12, ammonia, and TSH ordered. * far- no infectious reason for AMS * consult neurology for any additional work up for ?dementia/ams * 05/10- mri, eeg * lexapro and aricept started * neurology following- appreciate recommendations * TSH, vit d. b12, folate- all WNL 05/11 * stable- neurology following- appreciate recommendations 05/12/24 * MRI pending will need [facility] records for clearance * attempting to find a contact LM with [facility] * Hepatitis panel negative * HIV pending * EEG pending * Mini Mental ordered * may need psych consult * does not appear to be from an infectious process * Head CT negative * Carotid <50% bilateral (2) Hyperbilirubinemia: Code(s): E80.6 - Other disorders of bilirubin metabolism Status: Acute Assessment and Plan: * Total bilirubin is a bit elevated but the remainder of his LFTs are within normal limits. 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 The Agent Partner is post be providing information tomorrow. Likely can not do MRI until records from [facility] received no infectious process noted this may be progressing dementia however may a past psychiatric history unkno
--- NOTE | 2024-05-13 13:36 | PM.DS ---
DS: Admitting Diagnosis Discharge Date 05/13 Admitting Diagnosis confusion DS: Discharge Diagnosis Discharge Diagnosis (1) Altered mental status: Qualifiers: Altered mental status type: unspecified Qualified Code(s): R41.82 - Altered mental status, unspecified Code(s): R41.82 - Altered mental status, unspecified Status: Acute Assessment and Plan: The patient presented to the emergency department via EMS from his place of residence after he was found altered on a welfare check as detailed in HPI. Unfortunately the patient is not able to provide any meaningful history and no contacts are available. Upon reviewing the notes from his visit in 2016, it seems that he may very well have underlying cognitive deficits or psychiatric disorders. He has previously been seen at the [facility] and records have been requested Brain CT did not show any acute findings but showed what appears to be a colloid cyst of the 3rd ventricle which is likely of no significance at this time. However radiologist does note that the area has some hyperdensity thus will repeat brain CT to rule out bleed. Neurologic exam is limited but appears nonfocal and stroke seems unlikely. No evidence to suggest underlying infection on preliminary workup. No reports of or evidence in his EMR to suggest a history of alcohol abuse and he does not appear to be going through withdrawals. Urine drug screen, B12, ammonia, and TSH ordered. far- no infectious reason for AMS consult neurology for any additional work up for ?dementia/ams 05/10- mri, eeg lexapro and aricept started neurology following- appreciate recommendations TSH, vit d. b12, folate- all WNL 05/11 stable- neurology following- appreciate recommendations 05/12/24 MRI pending [facility] attempting to find a contact LM with [facility] Hepatitis panel negative HIV pending EEG pending Mini Mental ordered may need psych consult does not appear to be from an infectious process Head CT negative Carotid <50% bilateral (2) Hyperbilirubinemia: Code(s): E80.6 - Other disorders of bilirubin metabolism Status: Acute Assessment and Plan: Total bilirubin is a bit elevated but the remainder of his LFTs are within normal limits. 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 The land Lord is post be providing information tomorrow. Likely can not do MRI until records [facility] received no infectious process noted this may be progressing dementia however may a past psychiatric history unknown may need psychiatric evaluation. Patient was living by himself in an apartment building by likely unable to return if no improvement. DS: Summary Hospital Course Reason for hospitalization: altered mental status Hospital Course: This is an 88-year-old male who presented to the emergency department via EMS from home for evaluation of altered mental status. He is alert and oriented to self only and is a very poor historian. His landlord called 911 for a welfare check as he had not seen or heard from him in about a week's time. The patient was found confused and EMS was summoned. He is known to myself from an admission in January 2017 for syncope and diverticulitis and he was no
[2024-05-13 13:38] LABS: SARS-CoV-2 RNA PCR Negative (Negative)
[2024-05-13 15:49] LABS: HIV 1 RNA PCR NOT DETECTED (NOT DETECTED); HIV 1 RNA PCR NOT DETECTED copies/mL (NOT DETECTED)
--- NOTE | 2024-05-14 12:43 | WPDNEUROLOGY ---
Neurology EEG Report General Information Date of Study: 05/11/24 TEST electroencephalogram DIAGNOSIS altered mental status and memory loss CONDITION OF RECORDING bedside recording EEG NUMBER 24-to 6 CLINICAL HISTORY history of changes in mental status and memory loss EEG DESCRIPTION During wakefulness the background activity consists of posterior dominant apartment 8 hertz with an amplitude of 15-30 microvolts which appears mildly formed. Anteriorly muscle tension artifacts appeared in the frontotemporal region. Ventilation 14 systems were not performed. Stage 2 sleep not recorded. IMPRESSION This is a normal EEG obtained during awake state.
== END 2024-05-13 14:10 | DRG 948 ==
LOC: ANHED 15:47 → ANH3MED 17:48
PROVIDERS: Nurse Practitioner; Nurse Practitioner Family; Physician Assistant; Psychiatry & Neurology Neurology; Admitting Provider General Practice; Emergency Provider Physician Assistant; Visit Provider Nurse Practitioner Acute Care
DX: R41.82 Altered mental status, unspecified (principal); Q04.6 Congenital cerebral cysts; E86.0 Dehydration; E80.6 Other disorders of bilirubin metabolism; F03.90 Unspecified dementia, unspecified severity, without behavioral disturbance, psychotic disturbance, mood disturbance, and anxiety; N28.1 Cyst of kidney, acquired; N43.3 Hydrocele, unspecified; N44.2 Benign cyst of testis; N40.0 Benign prostatic hyperplasia without lower urinary tract symptoms; Z11.52 Encounter for screening for COVID-19; Z20.822 Contact with and (suspected) exposure to COVID-19; Z87.891 Personal history of nicotine dependence
CPT/HCPCS: 36415; 70450; 71046; 74177; 76870; 80048; 80053; 80074; 80178; 80307; 81001; 82077; 82140; 82248; 82306; 82550; 82607; 82746; 83605; 83690; 83735; 83921; 84145; 84443; 85025; 85027; 85610; 85730; 86140; 87040; 87045; 87427; 87449; 87493; 87536; 87635; 87637; 93005; 93880; 93976; 95816; 97110; 97161; 97165; 97530; 97535; 99285; A9270; G0378; J1650; J7120; Q9967

== ENCOUNTER 2024-11-27 10:41 | Emergency (ER) | payer MEDICARE, SELFPAY ==
--- NOTE | ~2024-11-27 | CT_ITS ---
EXAMINATION: CT brain wo con DATE: 11/27/2024 11:26 INDICATION: Headache TECHNIQUE: Computed tomography (CT) of the head was performed without intravenous contrast. Sagittal and coronal reconstructions were performed. The mA was adjusted according to patient size. Iterative reconstruction technique was employed. The dose-length product was 605.33 mGy-cm. COMPARISON: head CT dated 05/08/2024 FINDINGS: Small old lacunar infarcts which are new since the prior study in the bilateral frontoparietal white matter. No acute intracranial hemorrhage, acute infarction or abnormal extra axial fluid collection. There is moderate scattered white matter hypoattenuation consistent with chronic small vessel ischemi c disease. Ventricles are normal and symmetric. Again seen is hyperdense material within the right gl obe which could represent silicone oil for the treatment of retinal detachment. 7 mm hyperdense lesio n at the anterior third ventricle and subtle linear high attenuation at the anterior margin of the an terior horn of the left lateral ventricle which have developed in the interval between 05/07/2024 and 02/09/2017 likely representing intraventricular migration of the silicone oil within the right globe which has correspondingly decreased in volume during this interval. Mastoid air cells and middle ear cavities are clear. There is mucosal thickening the left sphenoid sinus. IMPRESSION: 1. 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 No acute i ntracranial process. 2. No significant change in a 7 mm hyperdense lesion at the third ventricle and minimal linear high a ttenuation material at the anterior left lateral ventricle likely representing migration of silicone oil from within the right globe for treatment of retinal detachment. Reviewed, dictated and finalized at location A. IMPRESSION: 1. 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 No acute intracranial process. 2. No significant change in a 7 mm hyperdense lesion at the third ventricle and minimal linear high attenuation material at the anterior left lateral ventricl e likely representing migration of silicone oil from within the right globe for treatment of retinal detachment.
--- NOTE | ~2024-11-27 | XR_ITS ---
XR chest 2V 11/27/2024 11:30 Indication: Weakness Procedure: AP and lateral views the chest Comparison: 05/07/2024 Findings: Heart size normal. No focal air space disease, pulmonary edema, pleural effusion or suspect ed pneumothorax. Moderate thoracic spondylosis. Moderate symmetric osteoarthritis of the shoulders. T here is atherosclerosis of the aorta. Impression: 1: No acute cardiopulmonary disease. Reviewed, dictated and finalized at location A. Impression: 1: No acute cardiopulmonary disease.
[2024-11-27 10:49] VITALS: BP 106/55; PULSE 94; RESP 17; TEMP 36.4; O2SAT 94
--- NOTE | 2024-11-27 10:49 | ECG_ITS ---
Test Date: 2024-11-27 10:56:36 Measurements Intervals [place] Rate: 62 P: 35 OK: 260 QRS: 18 QRSD: 91 T: 11 QT: 413 QTc: 422 Interpretive Statements SINUS RHYTHM WITH FIRST DEGREE AV BLOCK WITH OCCASIONAL SUPRAVENTRICULAR PREMATURE COMPLEXES NONSPECIFIC T-WAVE ABNORMALITY Compared to ECG 05/07/2024 14:35:10 First degree AV block now present T-wave abnormality now present Ventricular premature complex(es) no longer present Left ventricular hypertrophy no longer present Electronically Signed On 11-27-2024 19:10:33 CDT by Samreen Guardado
[2024-11-27 10:52] VITALS: PULSE 82
[2024-11-27 11:08] LABS: Basophils Percent Auto 0.3 % (0.2-1.2); Eosinophils Percent Auto 0.4 % (0-4.4); Hematocrit 39.2 % (42.0-52.0); Hemoglobin 12.7 g/dL (14.0-18.0); Immature Granulocyte Absolute 0.04 K/mm3 (0.00-0.031); Immature Granulocyte Percent A 0.4 % (0-0.5); Lymphocytes Absolute Auto 2.15 K/mm3 (0.9-3.2); Lymphocytes Percent Auto 22.2 % (18.3-44.2); Mean Corpuscular HGB Conc 32.4 g/dl (32-36); Mean Corpuscular Hemoglobin 28.7 pg (26-34); Mean Corpuscular Volume 88.5 fl (80-100); Mean Platelet Volume 9.9 fl (7.4-10.4); Monocytes Absolute Auto 0.6 K/mm3 (0.1-0.6); Monocytes Percent Auto 6.3 % (2.6-8.5); Neutrophils Absolute Auto 6.8 K/mm3 (1.3-6.7); Neutrophils Percent Auto 70.4 % (45.5-73.1); Platelet Count Result 320 k/mm3 (150-375); Red Blood Count 4.43 M/mm3 (4.6-6.20); Red Cell Distribution Width 13.9 % (11.5-14.5); White Blood Count 9.7 K/mm3 (4.5-10.0)
--- NOTE | 2024-11-27 11:26 | ED.WEAKNESS ---
HPI - Weakness General Chief complaint: Weakness Stated complaint: weakness Time Seen by Provider: 11/27/24 11:03 History of Present Illness HPI Narrative: Pt presents for generalized weakness for two weeks getting worse. Pt denies cough or fever or one sided weakness. Pt does have some dysuria and frequency. Pt denies nausea or vomiting or abd pain. Related Data Allergies Allergy/AdvReac Type Severity Reaction Status Date / Time No Known Allergies Allergy Verified 11/27/24 10:54 Review of Systems Review of Systems: All systems reviewed & are unremarkable except as noted in HPI and below PMFSH Past Medical History Medical History (Updated 11/27/24 @ 13:57 by Radha Kemp III, DO) Dementia Diverticulitis Benign prostatic hyperplasia Detached retina Surgical History Surgical History History of colonoscopy with polypectomy Social History Social History Social History: Patient refuses to designate a surrogate decision maker. Smoking status: Former smoker Alcohol intake: unknown Substance use: unknown Spiritual care concerns: No Exam Const: General: healthy appearing and no acute distress Nutritional Appearance: well nourished Orientation/consciousness: patient oriented x3 Limitations: no limitations HENMT: Head: normal to inspection Neck: Neck: normal visual inspection Resp: Effort & Inspection: normal respiratory effort Auscultation: clear to auscultation bilaterally Cardio: Rate: regular rate Rhythm: regular rhythm GI: GI Palp: Yes Soft to palpation and No Tenderness to palpation present (GI) Auscultation: normal bowel sounds Back/Spine/Pelvis: Back: no CVA tenderness Skin: General skin exam: normal color Rashes: no rashes Wounds: no wounds Neuro: General: patient oriented x3, moves all extremities and no focal motor deficits Speech: normal speech Extrem: General: normal to inspection and no clubbing, cyanosis or edema Psych: Mental Status: mental status grossly normal Affect: normal affect Attitude: cooperative Course Vital Signs Vital signs: Vital Signs Temperature 97.6 F 11/27/24 10:49 Pulse Rate 94 11/27/24 10:49 Respiratory Rate 17 11/27/24 10:49 Blood Pressure 106/55 L 11/27/24 10:49 Pulse Oximetry 94 11/27/24 10:49 Oxygen Delivery Room Air 11/27/24 10:49 Temperature 97.9 F 11/27/24 15:13 Pulse Rate 89 11/27/24 15:13 Respiratory Rate 17 11/27/24 15:13 Blood Pressure 123/51 L 11/27/24 15:13 Pulse Oximetry 96 11/27/24 15:13 Oxygen Delivery Room Air 11/27/24 10:49 MDM - Weakness MDM Narrative Medical decision making narrative: Pt presents with generalized weakness for two weeks. Pt has SALTER and some dysuria. will do labs and ua and cxr to rule out sepsis uti and pneumonia since pt has SALTER will get CT brain to rule out bleed or mass or cva. ct labs and ua unremarkable. Lab Data 11/27/24 11:02 11/27/24 11:02 Labs: Lab Results 11/27/24 11/27/24 Range/Units 11:02 12:35 WBC 9.7 (4.5-10.0) K/mm3 RBC 4.43 L (4.6-6.20) M/mm3 Hgb 12.7 L (14.0-18.0) g/dL Hct 39.2 L (42.0-52.0) % MCV 88.5 (80-100) fl MCH 28.7 (26-34) pg MCHC 32.4 (32-36) g/dl RDW 13.9 (11.5-14.5) % Plt Count 320 (150-375) k/mm3 MPV 9.9 (7.4-10.4) fl Immature Gran % (Auto) 0.4 (0-0.5) % Neut % (Auto) 70.4 (45.5-73.1) % Lymph % (Auto) 22.2 (18.3-44.2) % [place] % (Auto) 6.3 (2.6-8.5) % Eos % (Auto) 0.4 (0-4.4) % Baso % (Auto) 0.3 (0.2-1.2) % Lymph # (Auto) 2.15 (0.9-3.2) K/mm3 [place] # (Auto) 0.6 (0.1-0.6) K/mm3 Eos # (Auto) 0.0 (0-0.3) K/mm3 Baso # (Auto) 0.0 (0.0-0.1) K/mm3 Abs Immat Gran (auto) 0.04 H (0.00-0.031) K/mm3 Absolute Neuts (auto) 6.8 H (1.3-6.7) K/mm3 Absolute Nucleated RBC 0.000 (0.0-0.012) K/mm3 Nucleated RBC % 0.0 (0.0-0.2) % Sodium 132 L (137-145) mmol/L Potassium 3.9 (3.4-5.0) mmol/L Chloride 97 L (98-107) mmol/L Carbon Dioxide 28 (22-30) mmol/L Anion Gap 7 (4-12) mmol/L BUN 15 D (9-20) mg/dL Creatinine 0.76 (0.7-1.3) mg/dL Estim Creat Clear Calc 63 ml/min Estimated GFR > 60 (59 - ) Glucose 116 H (65-110) mg/dL Calcium 8.8 (8.4-10.2) mg/dL Total Bilirubin 1.1 (0.2-1.3) mg/dL AST 15 L (17-59) U/L ALT 13 (6-50) U/L Alkaline Phosphatase 65 (38-126) U/L Total Protein 6.0 L (6.3-8.2) g/dL Albumin 3.6 (3.5-5.1) g/dL Urine Color Yellow (Yellow) Urine Appearance Clear (Clear) Urine pH 5.5 (5.0-9.0) Ur Specific [place] 1.017 (1.001-1.035) Urine Protein 1+ H (Negative) mg/dL Urine Glucose (UA) Negative (Negative) mg/dL Urine Ketones Trace H (Negative) mg/dL Ur Blood (Man) 1+ H (Negative) Urine Nitrate Negative (Negative) Urine Bilirubin Negative (Negative) Urine Urobilinogen 1.0 (<2.0) mg/dL Add Ur Microanalysis Reviewed Leukocyte Esterase Rfl Negative (Negative) TAMERA/UL Urine RBC 21-50 H (0-2) /hpf Urine WBC 0-5 (0-3) /hpf Ur Squamous Epith Cells None seen (Few) /hpf Urine Bacteria None seen /hpf Urine Casts 3-5 Discharge Plan Discharge Clinical Impression: Weakness Patient Disposition: Home Condition: Stable Instructions: Antibiotic Form, Weakness (ED) Patient Language: Bangladeshi Prescriptions: No Action donepezil [Aricept] 5 mg Tablet 5 mg PO DAILY Qty: 90 0RF tamsulosin 0.4 mg Capsule 0.4 mg PO QAM Qty: 90 0RF escitalopram oxalate 10 mg Tablet 10 mg PO DAILY Qty: 90 0RF mirabegron [Myrbetriq] 25 mg Tablet Extended Release 24 Hr 25 mg PO DAILY Qty: 90 0RF Follow-up/Referrals: UNKNOWN,DOCTOR [Primary Care Provider] -
[2024-11-27 11:31] LABS: Alanine Aminotransferase 13 U/L (6-50); Albumin Level 3.6 g/dL (3.5-5.1); Alkaline Phosphatase 65 U/L (38-126); Anion Gap 7 mmol/L (4-12); Aspartate Amino Transferase 15 U/L (17-59); Bilirubin,Total 1.1 mg/dL (0.2-1.3); Blood Urea Nitrogen 15 mg/dL (9-20); Calcium 8.8 mg/dL (8.4-10.2); Carbon Dioxide 28 mmol/L (22-30); Chloride 97 mmol/L (98-107); Estimated CRCL calculation 63 ml/min; Estimated Glomerular Filt Rate > 60; Glucose 116 mg/dL (65-110); Potassium 3.9 mmol/L (3.4-5.0); Sodium 132 mmol/L (137-145)
[2024-11-27 12:48] VITALS: BP 114/64; PULSE 65; RESP 15; O2SAT 99
[2024-11-27 13:06] LABS: Add Urine Microscopic? YES; Appearance Urine Clear (Clear); Bacteria Urine None Seen /hpf; Bilirubin Urine Negative (Negative); Blood Urine 1+ (Negative); Color Urine Yellow (Yellow); Glucose Urine UA Negative (Negative); Ketones Urine Trace mg/dL (Negative); Leukocyte Esterase Ur Negative LEU/UL (Negative); Need Manual Microscopic Reviewed; Nitrate Urine Negative (Negative); Protein Urine 1+ mg/dL (Negative); RBC Urine 21-50 /hpf (0-2); Specific Grav Ur 1.017 (1.001-1.035); Squamous Epithelial Cell Urine None Seen /hpf (Few); WBC Urine 0-5 /hpf (0-3); pH Urine 5.5 (5.0-9.0)
[2024-11-27 13:44] VITALS: BP 108/60; PULSE 67; RESP 18; O2SAT 96
[2024-11-27 15:13] VITALS: BP 123/51; PULSE 89; RESP 17; TEMP 36.6; O2SAT 96
== END 2024-11-27 15:25 ==
PROVIDERS: Emergency Provider Emergency Medicine
DX: R53.1 Weakness (principal); F03.90 Unspecified dementia, unspecified severity, without behavioral disturbance, psychotic disturbance, mood disturbance, and anxiety; N40.0 Benign prostatic hyperplasia without lower urinary tract symptoms; Z86.0100 Personal history of colon polyps, unspecified; Z87.891 Personal history of nicotine dependence; Z79.899 Other long term (current) drug therapy; I44.0 Atrioventricular block, first degree; I49.1 Atrial premature depolarization; R94.31 Abnormal electrocardiogram [ECG] [EKG]
CPT/HCPCS: 36415; 70450; 71046; 80053; 81001; 85025; 93005; 99284